=== PATIENT | female | born 1955 | race Caucasian/White ===

== ENCOUNTER 2022-09-01 10:32 | Inpatient (IN) | payer MEDICARE, MEDICAID, SELFPAY ==
[2022-09-01] VITALS (25 sets, daily range): BP systolic 131–175; BP diastolic 68–144; PULSE 70–96; RESP 12–27; TEMP 36.6–37.2; O2SAT 96–99
--- NOTE | ~2022-09-01 | US_ITS ---
Limited Abdominal Sonogram: Real-time sonographic imaging of the right upper quadrant was performed. Clinical History: Abdominal pain Findings: The liver appears normal with no evidence of mass lesion or bile duct dilatation. Main por gracy vein demonstrates normal direction of flow. The gallbladder is well distended, and appears normal with no evidence of gallstone or wall thickening. The common bile duct measures 4 mm. The visualize d pancreas, aorta, and IVC are unremarkable. Impression: No significant abnormality seen. Reviewed, dictated and finalized at location . Impression: No significant abnormality seen.
--- NOTE | ~2022-09-01 | XR_ITS ---
EXAMINATION: XR surgery orthopedic DATE: 09/02/2022 17:20 CDT INDICATION: LT HIP PINNING . TECHNIQUE: 2 fluoroscopic images of the left hip were obtained during left hip pinning performed by ally garcia surgeon. I was not present in the operating room. Fluoroscopy exposure time was 50.2 seconds. Air Kerma 8.7285 mGy. DAP 0.1730 mGym2. COMPARISON: 09/01/2022 FINDINGS: 3 cannulated screws fix a subcapital fracture into anatomic alignment. IMPRESSION: Fluoroscopic documentation of left hip pinning. Please refer to the operative note for complete proce dural details . Reviewed, dictated and finalized at location K. IMPRESSION: Fluoroscopic documentation of left hip pinning. Please refer to the operative n ote for complete procedural details .
--- NOTE | ~2022-09-01 | XR_ITS ---
EXAMINATION: XR hip LT 2V w AP pelvis INDICATION: Left hip pain, initial encounter TECHNIQUE: AP view the pelvis and two views of the left hip are obtained. COMPARISON: None available FINDINGS: There is an acute, traumatic, closed, subcapital fracture of the left femoral neck. No devi tional fracture is identified. The femoral head is well-seated in the acetabulum. Phleboliths are not ed in the pelvis. IMPRESSION: 1. Acute subcapital fracture of the left femoral neck. Reviewed, dictated and finalized at location L.
--- NOTE | ~2022-09-01 | XR_ITS ---
EXAMINATION: XR chest 1V INDICATION: Pain after fall TECHNIQUE: AP view of the chest is obtained. COMPARISON: None available FINDINGS: There is a 5 mm nodular opacity projecting in the left midlung zone. No pleural effusion or pneumothorax. Calcified pulmonary nodules and calcified left hilar lymph nodes are consistent with o ld granulomatous disease. IMPRESSION: 1. Small nodular opacity projecting in the left midlung zone. Follow-up with nonemergent CT of the ch est is recommended. Reviewed, dictated and finalized at location L. IMPRESSION: 1. Small nodular opacity projecting in the left midlung zone. Follow-up with no nemergent CT of the chest is recommended.
--- NOTE | 2022-09-01 10:44 | ECG_ITS ---
Measurements Intervals [place] Rate: 85 P: 54 [place]: 180 QRS: 50 QRSD: 92 T: 47 QT: 330 QTc: 393 Interpretive Statements SINUS RHYTHM BASELINE ARTIFACT- I, III, AVL, AVF, V1 NORMAL ECG NO PREVIOUS ECG AVAILABLE FOR COMPARISON Electronically Signed On 09-01-2022 11:47:03 CDT by Nik Fields D.O.
[2022-09-01] MEDS: ONDANSETRON INJ 4 MG/2 ML VIAL IV PUSH (10:54)
[2022-09-01] MEDS: HYDROmorphone HCL INJ (*CRX) 1 MG/ML SYR IV PUSH ×2 (10:54→13:49)
[2022-09-01 11:09] LABS: Hematocrit 45.1 % (37.0-47.0); Hemoglobin 14.7 g/dL (12.0-15.0); Mean Corpuscular HGB Conc 32.6 g/dl (32-36); Mean Corpuscular Hemoglobin 29.6 pg (26-34); Mean Corpuscular Volume 90.7 fl (80-100); Platelet Count Result 323 k/mm3 (150-375); Red Blood Count 4.97 M/mm3 (4.2-5.4); Red Cell Distribution Width 12.4 % (11.5-14.5); White Blood Count 13.9 K/mm3 (4.5-10.0)
[2022-09-01 11:10] LABS: Basophils Absolute Auto 0.1 K/mm3 (0.0-0.1); Basophils Percent Auto 0.4 % (0.2-1.2); Eosinophils Percent Auto 0.2 % (0-4.4); Immature Granulocyte Absolute 0.04 K/mm3 (0.00-0.031); Immature Granulocyte Percent A 0.3 % (0-0.5); Lymphocytes Absolute Auto 1.87 K/mm3 (0.9-3.2); Lymphocytes Percent Auto 13.4 % (18.3-44.2); Mean Platelet Volume 8.2 fl (7.4-10.4); Monocytes Absolute Auto 0.7 K/mm3 (0.1-0.6); Monocytes Percent Auto 5.3 % (2.6-8.5); Neutrophils Absolute Auto 11.2 K/mm3 (1.3-6.7); Neutrophils Percent Auto 80.4 % (45.5-73.1)
[2022-09-01 11:20] LABS: Alanine Aminotransferase 23 U/L (6-35); Albumin Level 4.5 g/dL (3.5-5.1); Alkaline Phosphatase 94 U/L (38-126); Anion Gap 8 mmol/L (8-16); Aspartate Amino Transferase 25 U/L (14-36); Bilirubin,Total 0.7 mg/dL (0.2-1.3); Blood Urea Nitrogen 17 mg/dL (7-17); Calcium 9.3 mg/dL (8.4-10.2); Carbon Dioxide 23 mmol/L (22-30); Chloride 109 mmol/L (98-107); Creatine Kinase 57 U/L (30-135); Estimated Glomerular Filt Rate > 60; Glucose 98 mg/dL (65-110); Magnesium 1.9 mg/dL (1.6-2.3); Potassium 4.4 mmol/L (3.4-5.0); Sodium 140 mmol/L (137-145)
[2022-09-01 11:28] LABS: Partial Thromboplastin Time 27.2 SECONDS (22.3-36.8)
--- NOTE | 2022-09-01 11:46 | ED.FALL ---
HPI - Fall General Chief Complaint: Fall Stated Complaint: fall hip injury Time Seen by Provider: 09/01/22 10:32 Source: patient, EMS and RN notes reviewed Mode of arrival: EMS Limitations: no limitations History of Present Illness HPI Narrative: This is a 66 year old female who presents from home for evaluation of left hip pain s/p fall. She states she accidentally slipped on the floor this morning at 3 am. A family member was able to help her up to chair. She denies hitting her head on LOC. She denies numbness or tingling. she takes aspirin 81 mg . She states her doctor has been evaluating her for liver inflammation. Related Data Home Medications Medication Instructions Recorded Confirmed aspirin 81 mg tablet,delayed 81 mg PO DAILY 09/01/22 09/01/22 release ezetimibe 10 mg tablet 10 mg PO HS 09/01/22 09/01/22 tiotropium bromide 18 mcg capsule 18 mcg inhalation DAILY 09/01/22 09/01/22 with inhalation device (Spiriva with HandiHaler) Allergies Allergy/AdvReac Type Severity Reaction Status Date / Time No Known Allergies Allergy Verified 09/01/22 11:38 Review of Systems Constitutional: Constitutional: Denies weakness Cardiovascular: Cardiovascular: Denies syncope, Denies rapid heart rate, Denies irregular heart rhythm, Denies leg edema and Denies dyspnea Respiratory: Respiratory: Denies chest congestion, Denies hemoptysis, Denies excessive phlegm production and Denies dyspnea Gastrointestinal: Gastrointestinal: Denies abdominal pain, Denies hematochezia, Denies diarrhea and Denies vomiting Genitourinary: Genitourinary: Denies hematuria and Denies dysuria Musculoskeletal: Musculoskeletal: Denies joint swelling, Denies loss of height and Denies muscle weakness Neurologic: Denies syncope, Denies focal weakness and Denies weakness PMF Past Medical History Medical History (Updated 09/01/22 @ 16:49 by Janey Rodriguez PA-C) Bowel incontinence Chronic obstructive pulmonary disease Dyslipidemia Hepatitis C Treated several years ago in the [place]. History of MRSA infection Thyroid nodule Tobacco dependence Surgical History Surgical History History of loop electrical excision procedure (LEEP) Family History Family History (Updated 09/01/22 @ 16:49 by Janey Rodriguez PA-C) Other Family history non-contributory Social History Social History (Updated 09/01/22 @ 16:50 by Janey Rodriguez PA-C) Social History: Surrogate medical decision maker: Pia Coon, sister. Code status: Full code. Smoking packs per day: 1 Smoking cigarettes per day: 20.0 Smoking status: Current every day smoker Additional smoking assessment comments: Trying to quit as of August 2022, down to 2 to 3 cigarettes a day. Lack of Transportation: No Lack of Food: Never True Current Housing: I Have Housing Concerned About Future Housing: No Difficulty Paying Gas/Electric Bills: No Difficulty Paying for Meds: No Currently Unemployed: No Education: High School Diploma/GED Difficulty w/ Childcare or Family Care: No Additional living arrangements comments: Lives in [place]. Family members nearby. Spiritual care concerns: No Exam Const: General: alert Nutritional Appearance: well nourished Orientation/consciousness: patient oriented x3 Other: patient appears anxious and in pain HENMT: Head: normal to inspection, no contusions and no hematomas Face and sinus: normal facial exam Throat: posterior oropharynx normal Eyes: EOM: EOMs intact bilaterally Neck: Neck: normal visual inspection Chest: Chest palpation & inspection: normal inspection of the chest Resp: Effort & Inspection: normal respiratory effort Auscultation: clear to auscultation bilaterally GI: GI Palp: Yes Soft to palpation, No Tenderness to palpation present (GI), No Guarding due to palpation present (GI) and No Rigid due to palpation Auscul
[2022-09-01 11:56] LABS: Ammonia 11 umol/L (9-30)
[2022-09-01 12:04] LABS: Appearance Urine Clear (Clear); Bacteria Urine None Seen /hpf; Bilirubin Urine Negative (Negative); Blood Urine 2+ (Negative); Color Urine Yellow (Yellow); Glucose Urine UA Negative (Negative); Ketones Urine Negative (Negative); Leukocyte Esterase Ur Negative LEU/UL (Negative); Nitrate Urine Negative (Negative); Non Pathogenic Casts 0-2; Protein Urine Negative (Negative); Specific Grav Ur 1.014 (1.001-1.035); Squamous Epithelial Cell Urine None seen /hpf (Few); Urobilinogen Urine 0.2 mg/dL (<2.0); WBC Urine 0-5 /hpf
[2022-09-01 12:06] LABS: Add Urine Microscopic? YES
--- NOTE | 2022-09-01 13:30 | PM.IMHP ---
H&P: HPI History of Present Illness Date/Time: 09/01/22 13:30 Chief Complaint: Left leg pain after fall. Narrative: This is a very pleasant 66-year-old female smoker with COPD, dyslipidemia, and treated hepatitis-C who presented to the emergency department via EMS from home for evaluation of left leg pain after a fall. Patient provides the following history. She got up at around 03:00 to use the restroom, slipped on the floor, and landed on her left side. She was able to crawl to the bathroom and is my she attempted to make it back to bed but fell again. Eventually she called family members to come over and they helped her up. X-ray showed acute subcapital fracture of the left femoral neck and she is being admitted in this setting. She denies head trauma and loss of consciousness in the fall. She sustained no other injuries aside from that as detailed above. In the ED her blood pressures have been running a bit high, in the 140 systolic, but other vital signs are stable. Labs are pretty unremarkable. At the time my evaluation she reports significant, constant aching pain about the left hip. 1 mg dilaudid was not of much benefit but she seems to have gotten relief with morphine 4 mg. Review of Systems Review of Systems: Twelve systems were reviewed. No fever, chills, or sweats. No recent cold or flu symptoms. She has been having issues with abdominal discomfort and pruritus and she saw her primary care provider for evaluation of those symptoms last week. The symptoms are similar to those she experienced prior to finding out she had hepatitis-C and prior to treatment of the same. She does not recall what treatment she took but reports that she had to go to the [facility] to get it. She denies jaundice and acolic stools. No nausea or vomiting. She has not noticed any blood or mucus in the stools. She has chronic stool incontinence and has for upwards of 8 years. She has had numerous colonoscopies and workups which were reportedly unrevealing. No history of cardiac disease. She denies exertional chest pain and shortness of breath. No syncope or near syncope. No history of venous thromboembolism. Except as documented, all other systems were reviewed and are negative. [facility] Past Medical History Medical History (Updated 09/01/22 @ 16:49 by Janey Rodriguez PA-C) Bowel incontinence Chronic obstructive pulmonary disease Dyslipidemia Hepatitis C Treated several years ago in the [place]. History of MRSA infection Thyroid nodule Tobacco dependence Surgical History Surgical History History of loop electrical excision procedure (LEEP) Family History Family History (Updated 09/01/22 @ 16:49 by Janey Rodriguez PA-C) Other Family history non-contributory Social History Social History (Updated 09/01/22 @ 16:50 by Janey Rodriguez PA-C) Social History: Surrogate medical decision maker: Pia Coon, sister. Code status: Full code. Smoking packs per day: 1 Smoking cigarettes per day: 20.0 Smoking status: Current every day smoker Additional smoking assessment comments: Trying to quit as of August 2022, down to 2 to 3 cigarettes a day. Lack of Transportation: No Lack of Food: Never True Current Housing: I Have Housing Concerned About Future Housing: No Difficulty Paying Gas/Electric Bills: No Difficulty Paying for Meds: No Currently Unemployed: No Education: High School Diploma/GED Difficulty w/ Childcare or Family Care: No Additional living arrangements comments: Lives in [place]. Family members nearby. Spiritual care concerns: No Meds Home Medications and Allergies Allergies Allergy/AdvReac Type Severity Reaction Status Date / Time No Known Allergies Allergy Verified 09/01/22 11:38 Vital Signs Vital Signs - 24 hr 09/01/22 10:41 Pulse Rate 96 Respiratory Rate 16 Blood Pressure 175/144 H Pulse Oximetry 98 Exam
--- NOTE | 2022-09-01 14:20 | PC.NURSE ---
Report called to [facility].
--- NOTE | 2022-09-01 15:18 | ADMGEN ---
This patient, Chelsea Molina, was admitted to 2 Medical Room 249-01. Patient/family oriented to hospital policies and general routines including ID bracelet, bed and alarms, visiting hours, pain management, procedures, bathroom and other care routines, personal items, smoking policy, room service/diet, and visiting hours. Information on how to activate the Rapid Response Team has been discussed. Patient/Family are encouraged to report perceived risks to care and to ask questions if they do not understand what they are told or what they should do.
[2022-09-01] MEDS: MORPHINE SULFATE (*CRX) 4 MG/ML INJ IV PUSH ×2 (15:34→22:34)
--- NOTE | 2022-09-01 16:04 | PM.CNOR ---
Assessment and Plan Assessment and plan (1) Closed subcapital fracture of neck of left femur: Code(s): S72.012A - Unspecified intracapsular fracture of left femur, initial encounter for closed fracture Status: Acute Plan 66-year-old female with an acute left subcapital femoral neck fracture after a fall around 3:00 a.m. this morning. Pain will be the ORIF with hip pinning tomorrow afternoon. Nature of the procedure along with risks and complications were discussed with her in detail. She will need to be NPO after midnight. She will also be touchdown weight-bearing for a minimum of 8 weeks postoperatively. Past medical history includes COPD and dyslipidemia. She is a smoker but states she is trying to quit, I did inform her this may delay her fracture healing time. She does take a daily aspirin and this will be used as our DVT prophylaxis at discharge. Likely start on Lovenox after surgery. History of Present Illness HPI Consult date: 09/01/22 Chief complaint: Closed Left Subcapital Femoral Neck Fracture Narrative: 66-year-old female with a left subcapital femoral neck fracture. She slipped and fell around 3:00 a.m. this morning and landed directly on her left side. She has significant amount of pain at the left hip. No ecchymosis or redness. She denies hitting her head or any loss of consciousness. X-rays taken in the ER show the left subcapital femoral neck fracture. Review of Systems Constitutional: Constitutional: Reports as per HPI and Reports no additional constitutional complaints Musculoskeletal: Musculoskeletal: Reports arthralgias (Left hip) [facility] Past Medical History Medical History Cervical dysplasia Chronic obstructive pulmonary disease Dyslipidemia Liver disease Tobacco dependence Social History Social History Social History: Surrogate medical decision maker: Pia Coon, sister. Code status: Full code. Smoking packs per day: 1 Smoking cigarettes per day: 20.0 Smoking status: Current every day smoker Lack of Transportation: No Lack of Food: Never True Current Housing: I Have Housing Concerned About Future Housing: No Difficulty Paying Gas/Electric Bills: No Difficulty Paying for Meds: No Currently Unemployed: No Education: High School Diploma/GED Difficulty w/ Childcare or Family Care: No Spiritual care concerns: No Meds Home Medications and Allergies Allergies Allergy/AdvReac Type Severity Reaction Status Date / Time No Known Allergies Allergy Verified 09/01/22 11:38 Vital Signs Vital Signs - 24 hr 09/01/22 10:41 09/01/22 13:48 09/01/22 13:50 Temperature 98.8 F Pulse Rate 96 79 Respiratory Rate 16 24 H Blood Pressure 175/144 H 157/95 H Pulse Oximetry 98 99 09/01/22 11:49 09/01/22 12:00 09/01/22 12:33 Temperature Pulse Rate 89 78 83 Respiratory Rate 15 13 21 H Blood Pressure Pulse Oximetry 99 97 99 09/01/22 12:45 09/01/22 13:00 09/01/22 13:01 Temperature Pulse Rate 80 82 80 Respiratory Rate 12 16 26 H Blood Pressure Pulse Oximetry 97 99 96 09/01/22 13:15 09/01/22 13:30 09/01/22 13:31 Temperature Pulse Rate 83 82 84 Respiratory Rate 27 H 15 21 H Blood Pressure 151/96 H Pulse Oximetry 99 98 96 09/01/22 13:45 09/01/22 13:46 09/01/22 13:48 Temperature Pulse Rate 85 84 80 Respiratory Rate 20 19 22 H Blood Pressure Pulse Oximetry 98 97 99 09/01/22 13:51 09/01/22 14:09 09/01/22 14:15 Temperature Pulse Rate 86 76 81 Respiratory Rate 22 H 20 17 Blood Pressure 157/95 H Pulse Oximetry 99 98 97 09/01/22 14:16 09/01/22 14:30 09/01/22 14:32 Temperature Pulse Rate 77 83 82 Respiratory Rate 15 19 22 H Blood Pressure 162/89 H 140/94 H Pulse Oximetry 96 98 98 09/01/22 15:10 Temperature 99 F Pulse Rate 86 Respiratory Rate 20 Blood Pressure 145/68 H Pulse O
[2022-09-01] MEDS: HYDROcodone/acetaminophen (*CRX) 5-325 MG TABLET 1 TAB PO (18:16)
[2022-09-02] VITALS (15 sets, daily range): BP systolic 110–178; BP diastolic 68–95; PULSE 74–109; RESP 11–20; TEMP 36.6–37.2; O2SAT 92–100
[2022-09-02] MEDS: HYDROcodone/acetaminophen (*CRX) 5-325 MG TABLET 1 TAB PO ×2 (04:33→11:18)
[2022-09-02 05:52] LABS: Basophils Percent Auto 0.4 % (0.2-1.2); Eosinophils Absolute Auto 0.1 K/mm3 (0-0.3); Hematocrit 40.8 % (37.0-47.0); Hemoglobin 13.5 g/dL (12.0-15.0); Immature Granulocyte Absolute 0.02 K/mm3 (0.00-0.031); Immature Granulocyte Percent A 0.2 % (0-0.5); Lymphocytes Absolute Auto 2.15 K/mm3 (0.9-3.2); Lymphocytes Percent Auto 25.6 % (18.3-44.2); Mean Corpuscular HGB Conc 33.1 g/dl (32-36); Mean Corpuscular Hemoglobin 29.3 pg (26-34); Mean Corpuscular Volume 88.5 fl (80-100); Mean Platelet Volume 8.3 fl (7.4-10.4); Monocytes Absolute Auto 0.7 K/mm3 (0.1-0.6); Monocytes Percent Auto 7.9 % (2.6-8.5); Neutrophils Absolute Auto 5.5 K/mm3 (1.3-6.7); Neutrophils Percent Auto 64.9 % (45.5-73.1); Platelet Count Result 306 k/mm3 (150-375); Red Blood Count 4.61 M/mm3 (4.2-5.4); Red Cell Distribution Width 12.4 % (11.5-14.5); White Blood Count 8.4 K/mm3 (4.5-10.0)
[2022-09-02 06:10] LABS: Alanine Aminotransferase 19 U/L (6-35); Albumin Level 4.2 g/dL (3.5-5.1); Alkaline Phosphatase 78 U/L (38-126); Anion Gap 5 mmol/L (8-16); Aspartate Amino Transferase 24 U/L (14-36); Bilirubin,Total 0.9 mg/dL (0.2-1.3); Blood Urea Nitrogen 14 mg/dL (7-17); Calcium 8.9 mg/dL (8.4-10.2); Carbon Dioxide 27 mmol/L (22-30); Chloride 106 mmol/L (98-107); Estimated Glomerular Filt Rate > 60; Glucose 107 mg/dL (65-110); Magnesium 1.9 mg/dL (1.6-2.3); Potassium 3.9 mmol/L (3.4-5.0); Sodium 138 mmol/L (137-145)
[2022-09-02] MEDS: MORPHINE SULFATE (*CRX) 4 MG/ML INJ IV PUSH ×2 (06:15→12:38)
--- NOTE | 2022-09-02 10:30 | PM.IMPN ---
Progress Note: A&P Assessment and Plan (1) Closed subcapital fracture of neck of left femur: Code(s): S72.012A - Unspecified intracapsular fracture of left femur, initial encounter for closed fracture Status: Acute Assessment and Plan: Presented with left hip pain after slipping on the floor while getting out of bed Hip and pelvis xray: acute subcapital fracture of the left femoral neck NPO for surgical intervention today Ortho to manage post op care DVT per ortho PT/OT as indicated Weight bearing appears to be toe touch 8 weeks post op (2) Fall from ground level: Code(s): W18.30XA - Fall on same level, unspecified, initial encounter Status: Acute Assessment and Plan: Fall precautions Mechanical in nature PT/OT post op (3) Elevated blood pressure reading: Code(s): R03.0 - Elevated blood-pressure reading, without diagnosis of hypertension Status: Acute Assessment and Plan: BP stable at 110/68 No home medications Could be elevated prior to admission related to pain Continue to trend BP Adjust therapy as indicated (4) Chronic obstructive pulmonary disease: Code(s): J44.9 - Chronic obstructive pulmonary disease, unspecified Status: Acute Assessment and Plan: Stable Continues to smoke Continue home Spiriva Chest xray shows: Small nodular opacity projecting in the left midlung zone. Follow-up with nonemergent CT of the chest is recommended. Continue to trend respiratory status (5) Dyslipidemia: Code(s): E78.5 - Hyperlipidemia, unspecified Status: Acute Assessment and Plan: Stable and chronic Continue ezetimibe when appropriate trend liver enzymes (6) Tobacco dependence: Code(s): F17.200 - Nicotine dependence, unspecified, uncomplicated Status: Acute Assessment and Plan: Nicotine patch ordered PRN Nicotine gum PRN Smoking cessation Plan Pain noted in the RUQ, ultrasound was negative, liver was also normal Time Spent With Patient Time: 52 minutes Time with patient: Greater than 35 minutes Subjective Date/time seen: 09/02/22 1030 Interval history: 09/02/22 1030 Patient was lying in bed she stated that she was having 10/10 pain. She also stated that she did feel like she was getting converted all. Change her pain medicine at this time. Patient also stated that she has been having some pretty significant right upper quadrant pain for quite some time. She was concerned that she just had a CT done at the other hospital and also stated that she was told that her hepatitis-C that was treated might be flaring back up. She denies any chest pain, shortness a breath, nausea, vomiting, diarrhea or constipation. She did state that the pain in her right upper quadrant does radiate to her shoulder blades and usually is very hard to control. She also stated that her stool is white, And watery. 09/01/22? 13:30 This is a very pleasant 66-year-old female smoker with COPD, dyslipidemia, and treated hepatitis-C who presented to the emergency department via EMS from home for evaluation of left leg pain after a fall. Patient provides the following history. She got up at around 03:00 to use the restroom, slipped on the floor, and landed on her left side. She was able to crawl to the bathroom and is my she attempted to make it back to bed but fell again. Eventually she called family members to come over and they helped her up. X-ray showed acute subcapital fracture of the left femoral neck and she is being admitted in this setting. She denies head trauma and loss of consciousness in the fall. She sustained no other injuries aside from that as detailed above. In the ED her blood pressures have been running a bit high, in the 140 systolic, but other vital signs are stable. Labs are pretty unrem
--- NOTE | 2022-09-02 10:30 | P.PNIM_ITS ---
Progress Note: A&P Assessment and Plan (1) Closed subcapital fracture of neck of left femur: Code(s): S72.012A - Unspecified intracapsular fracture of left femur, initial encounter for closed fracture Status: Acute Assessment and Plan: * Presented with left hip pain after slipping on the floor while getting out of bed * Hip and pelvis xray: acute subcapital fracture of the left femoral neck * NPO for surgical intervention today * Ortho to manage post op care * DVT per ortho * PT/OT as indicated * Weight bearing appears to be toe touch 8 weeks post op (2) Fall from ground level: Code(s): W18.30XA - Fall on same level, unspecified, initial encounter Status: Acute Assessment and Plan: * Fall precautions * Mechanical in nature * PT/OT post op (3) Elevated blood pressure reading: Code(s): R03.0 - Elevated blood-pressure reading, without diagnosis of hypertension Status: Acute Assessment and Plan: * BP stable at 110/68 * No home medications * Could be elevated prior to admission related to pain * Continue to trend BP * Adjust therapy as indicated (4) Chronic obstructive pulmonary disease: Code(s): J44.9 - Chronic obstructive pulmonary disease, unspecified Status: Acute Assessment and Plan: * Stable * Continues to smoke * Continue home Spiriva * Chest xray shows: Small nodular opacity projecting in the left midlung zone. Follow-up with nonemergent CT of the chest is recommended. * Continue to trend respiratory status (5) Dyslipidemia: Code(s): E78.5 - Hyperlipidemia, unspecified Status: Acute Assessment and Plan: * Stable and chronic * Continue ezetimibe when appropriate * trend liver enzymes (6) Tobacco dependence: Code(s): F17.200 - Nicotine dependence, unspecified, uncomplicated Status: Acute Assessment and Plan: * Nicotine patch ordered PRN * Nicotine gum PRN * Smoking cessation Plan Pain noted in the RUQ, ultrasound was negative, liver was also normal Time Spent With Patient Time: 52 minutes Time with patient: Greater than 35 minutes Subjective Date/time seen: 09/02/22 1030 Interval history: 09/02/22 1030 Patient was lying in bed she stated that she was having 10/10 pain. She also stated that she did feel like she was getting converted all. Change her pain medicine at this time. Patient also stated that she has been having some pretty significant right upper quadrant pain for quite some time. She was concerned that she just had a CT done at the other hospital and also stated that she was told that her hepatitis-C that was treated might be flaring back up. She denies any chest pain, shortness a breath, nausea, vomiting, diarrhea or constipation. She did state that the pain in her right upper quadrant does radiate to her shoulder blades and usually is very hard to control. She also stated that her stool is white, And watery. 09/01/22? 13:30 This is a very pleasant 66-year-old female smoker with COPD, dyslipidemia, and treated hepatitis-C who presented to the emergency department via EMS from home for evaluation of left leg pain after a fall. Patient provides the following history. She got up at around 03:00 to use the restroom,
[2022-09-02] MEDS: HYDROmorphone HCL INJ (*CRX) 1 MG/ML SYR IV PUSH (14:58)
[2022-09-02] MEDS: HYDROmorphone HCL INJ (*CRX) 1 MG/ML SYR 0.5 MG IV PUSH ×2 (15:54→20:59)
--- NOTE | 2022-09-02 16:34 | WPDANESEPPF ---
Anes - Initial Pre Proc Eval Procedure: Operation Date: 09/02/22 17:00 Proposed Procedures p Left Hip Pinning In Situ(Left) - Neil Bates MD Date/Time: 09/02/22 16:34 Surgeon: Aguilar Bruce MD Pre Op Diagnosis: Closed Left Subcapital Femoral Neck Fracture Patient Data Age: 66 Gender: F Height: Weight: 73 kg Last Vital Signs Temp 36.9 C 09/02/22 14:00 Pulse 82 09/02/22 14:00 Resp 19 09/02/22 14:00 BP 144/95 H 09/02/22 14:00 Pulse Ox 99 09/02/22 14:00 O2 Del Method Room Air 09/02/22 08:00 Allergies Allergy/AdvReac Type Severity Reaction Status Date / Time No Known Allergies Allergy Verified 09/01/22 11:38 Home Medications Medication Instructions Recorded Confirmed Type aspirin 81 mg tablet,delayed 81 mg PO DAILY 09/01/22 09/01/22 History release ezetimibe 10 mg tablet 10 mg PO HS 09/01/22 09/01/22 History tiotropium bromide 18 mcg capsule 18 mcg inhalation DAILY 09/01/22 09/01/22 History with inhalation device (Spiriva with HandiHaler) Laboratory Tests 09/02/22 09/02/22 05:28 05:28 WBC 8.4 K/mm3 K/mm3 (4.5-10.0) RBC 4.61 M/mm3 M/mm3 (4.2-5.4) Hgb 13.5 g/dL g/dL (12.0-15.0) Hct 40.8 % % (37.0-47.0) MCV 88.5 fl fl (80-100) MCH 29.3 pg pg (26-34) MCHC 33.1 g/dl g/dl (32-36) RDW 12.4 % % (11.5-14.5) Plt Count 306 k/mm3 k/mm3 (150-375) MPV 8.3 fl fl (7.4-10.4) Immature Gran % (Auto) 0.2 % % (0-0.5) Neut % (Auto) 64.9 % % (45.5-73.1) Lymph % (Auto) 25.6 % % (18.3-44.2) [place] % (Auto) 7.9 % % (2.6-8.5) Eos % (Auto) 1.0 % % (0-4.4) Baso % (Auto) 0.4 % % (0.2-1.2) Lymph # (Auto) 2.15 K/mm3 K/mm3 (0.9-3.2) [place] # (Auto) 0.7 K/mm3 H K/mm3 (0.1-0.6) Eos # (Auto) 0.1 K/mm3 K/mm3 (0-0.3) Baso # (Auto) 0.0 K/mm3 K/mm3 (0.0-0.1) Abs Immat Gran (auto) 0.02 K/mm3 K/mm3 (0.00-0.031) Absolute Neuts (auto) 5.5 K/mm3 K/mm3 (1.3-6.7) Absolute Nucleated RBC 0.0 K/mm3 K/mm3 (0.0-0.012) Nucleated RBC % 0.0 % % (0.0-0.2) Sodium 138 mmol/L mmol/L (137-145) Potassium 3.9 mmol/L mmol/L (3.4-5.0) Chloride 106 mmol/L mmol/L (98-107) Carbon Dioxide 27 mmol/L mmol/L (22-30) Anion Gap 5 mmol/L L mmol/L (8-16) BUN 14 mg/dL mg/dL (7-17) Creatinine 0.70 mg/dL mg/dL (0.7-1.0) Estim Creat Clear Calc Not Reportable Estimated GFR > 60 (59 - ) Glucose 107 mg/dL mg/dL (65-110) Calcium 8.9 mg/dL mg/dL (8.4-10.2) Magnesium 1.9 mg/dL mg/dL (1.6-2.3) Total Bilirubin 0.9 mg/dL mg/dL (0.2-1.3) AST 24 U/L U/L (14-36) ALT 19 U/L U/L (6-35) Alkaline Phosphatase 78 U/L U/L (38-126) Total Protein 8.0 g/dL g/dL (6.3-8.2) Albumin 4.2 g/dL g/dL (3.5-5.1) Patient hx anesthesia problems: none Family hx anesthesia problems: none Results Review: All pre-operative results and documents have been reviewed as part of the pre-operative evaluation. [facility] Past Medical History Medical History Bowel incontinence Chronic obstructive pulmonary disease Dyslipidemia Hepatitis C Treated several years ago in the . History of MRSA infection Thyroid nodule Tobacco dependence Surgical History Surgical History History of loop electrical excision procedure (LEEP) Family History Family History Other Family history non-contributory Social History Social History Social History: Surrogate medical decision maker: Pia Ocon, sister. Code status: Full code. Smoking packs per day: 1 Smoking cigarettes per day: 20.0
[2022-09-02] MEDS: LACTATED RINGERS 1,000 ML 30 ML IV CONT (16:35)
--- NOTE | 2022-09-02 16:41 | WPDHPUPDATE1 ---
History and Physical Update Update Date/Time: 09/02/22 16:41 History and Physical has been reviewed, including an updated exam of the patient. There are NO changes in the patient's condition. Risks, benefits, and alternatives have been discussed and questions answered. Patient agrees to proceed with procedure.
[2022-09-02] MEDS: ceFAZolin 2 GM/D5W 50 ML 2 GM/50 ML BAG IVPB (16:59)
--- NOTE | 2022-09-02 18:19 | P.OP_ITS ---
Procedure Note - Detailed Date of Procedure 09/02/22 Pre-op Diagnosis Closed Left Subcapital Femoral Neck Fracture Post-op Diagnosis Same Procedure Performed Pinning in-situ left femoral neck fracture Surgeon Neil Bates MD Senior Analyst [employer] Anesthesia General Description of Procedure The patient was identified and proper site identified. She was taken to the operating room and after general anesthetic induction and intubation was transferred to the [place] table positioning her supine in the usual manner for fixation of a left hip fracture. Care was taken to properly position and had her torso and extremities. Left hip fracture was examined fluoroscopically and noted to be in unchanged impacted position. The left hip and thigh was prepped and draped in usual sterile fashion. Longitudinal incision was made over the lateral aspect of the proximal femur. The subcutaneous tissue was sharply dissected down to the IT band which was divided in line of the incision. Using the targeting device , and with fluoroscopic assistance, three pins for the seven-0 cannulated screw set were placed in the femoral neck and head over which three cannulated screws were placed and the pins removed. The wound was irrigated with sterile saline. The IT band was reapproximated with 0 Vicryl suture. Deeper layers of the subcu reapproximated with 0 Vicryl. Skin reapproximated with 3-0 V lock and allegra. Sterile dressing was applied. She tolerated procedure well. She was awakened, extubated and taken to recovery area in stable condition. There were no known intraoperative complications. Estimated blood loss negligible. She received perioperative antibiotics. Estimated Blood Loss 10 Urine Output 0 Drains No Packing No Pathology None sent Complications No immediate complications Condition Stable Disposition PACU [facility] Billing Surgery - Charge Forward: Surgery Billing ([id number])
[2022-09-02] MEDS: ONDANSETRON INJ 4 MG/2 ML VIAL IV PUSH (18:57)
[2022-09-02] MEDS: diphenhydrAMINE HCl INJ 50 MG/ML VIAL 25 MG IV PUSH (19:27)
[2022-09-02] MEDS: fentaNYL CITRATE INJ (*CRX) 100 MCG/2 ML VIAL 25 MCG IV PUSH (19:35)
--- NOTE | 2022-09-02 20:06 | PC.NURSE ---
Pt returned from OR, Pt alert and oriented and placed into bed.
[2022-09-02] MEDS: SODIUM CHLORIDE 0.9% IV 1,000 ML 125 ML IV CONT (20:51)
[2022-09-02] MEDS: PROMETHAZINE HCL 25 MG/ML AMPUL 12.5 MG IV PUSH (21:01)
[2022-09-02] MEDS: EZETIMIBE 10 MG TABLET PO (22:01)
[2022-09-02] MEDS: FAMOTIDINE 20 MG TABLET PO (22:01)
[2022-09-02] MEDS: HYDROcodone/acetaminophen (*CRX) 5-325 MG TABLET 2 TAB PO (22:02)
[2022-09-03] VITALS (7 sets, daily range): BP systolic 123–157; BP diastolic 84–90; PULSE 74–84; RESP 16–18; TEMP 36.4–36.9; O2SAT 94–99
[2022-09-03] MEDS: ceFAZolin 2 GM/D5W 50 ML 2 GM/50 ML BAG IVPB ×3 (01:38→16:37)
[2022-09-03] MEDS: HYDROcodone/acetaminophen (*CRX) 5-325 MG TABLET 2 TAB PO ×2 (03:53→21:29)
[2022-09-03 05:54] LABS: Basophils Percent Auto 0.4 % (0.2-1.2); Eosinophils Absolute Auto 0.1 K/mm3 (0-0.3); Eosinophils Percent Auto 1.1 % (0-4.4); Hematocrit 43.1 % (37.0-47.0); Hemoglobin 13.7 g/dL (12.0-15.0); Immature Granulocyte Absolute 0.02 K/mm3 (0.00-0.031); Immature Granulocyte Percent A 0.2 % (0-0.5); Lymphocytes Absolute Auto 2.31 K/mm3 (0.9-3.2); Lymphocytes Percent Auto 20.9 % (18.3-44.2); Mean Corpuscular HGB Conc 31.8 g/dl (32-36); Mean Corpuscular Hemoglobin 29.7 pg (26-34); Mean Corpuscular Volume 93.3 fl (80-100); Mean Platelet Volume 8.5 fl (7.4-10.4); Neutrophils Absolute Auto 7.6 K/mm3 (1.3-6.7); Neutrophils Percent Auto 68.4 % (45.5-73.1); Platelet Count Result 282 k/mm3 (150-375); Red Blood Count 4.62 M/mm3 (4.2-5.4); Red Cell Distribution Width 12.5 % (11.5-14.5); White Blood Count 11.1 K/mm3 (4.5-10.0)
[2022-09-03 06:16] LABS: Alanine Aminotransferase 17 U/L (6-35); Albumin Level 3.7 g/dL (3.5-5.1); Alkaline Phosphatase 65 U/L (38-126); Anion Gap 6 mmol/L (8-16); Aspartate Amino Transferase 28 U/L (14-36); Bilirubin,Total 0.7 mg/dL (0.2-1.3); Blood Urea Nitrogen 14 mg/dL (7-17); Calcium 8.3 mg/dL (8.4-10.2); Carbon Dioxide 24 mmol/L (22-30); Chloride 109 mmol/L (98-107); Estimated CRCL calculation 63 ml/min; Estimated Glomerular Filt Rate > 60; Glucose 98 mg/dL (65-110); Magnesium 1.8 mg/dL (1.6-2.3); Potassium 4.3 mmol/L (3.4-5.0); Sodium 139 mmol/L (137-145)
[2022-09-03] MEDS: SODIUM CHLORIDE 0.9% IV 1,000 ML 125 ML IV CONT (06:17)
[2022-09-03] MEDS: FAMOTIDINE 20 MG TABLET PO ×2 (08:09→20:20)
[2022-09-03] MEDS: polyethylene glycoL 3350 17 GM POWD.PACK PO (08:09)
[2022-09-03] MEDS: SENNA/DOCUSATE SODIUM TABLET 2 TAB PO ×2 (08:10→16:37)
[2022-09-03] MEDS: APIXABAN 2.5 MG TABLET PO ×2 (08:10→20:20)
[2022-09-03] MEDS: UMECLIDINIUM BROMIDE 62.5 MCG ELLIPTA 1 PUFF INHALATION (08:31)
--- NOTE | 2022-09-03 09:30 | P.PNIM_ITS ---
Progress Note: A&P Assessment and Plan (1) Closed subcapital fracture of neck of left femur: Code(s): S72.012A - Unspecified intracapsular fracture of left femur, initial encounter for closed fracture Status: Acute Assessment and Plan: * POD 1 * Presented with left hip pain after slipping on the floor while getting out of bed * Hip and pelvis xray: acute subcapital fracture of the left femoral neck * NPO for surgical intervention today * Ortho to manage post op care * DVT Aspirin * PT/OT as indicated * Weight bearing appears to be toe touch 8 weeks post op (2) Fall from ground level: Code(s): W18.30XA - Fall on same level, unspecified, initial encounter Status: Acute Assessment and Plan: * Fall precautions * Mechanical in nature * PT/OT post op (3) Elevated blood pressure reading: Code(s): R03.0 - Elevated blood-pressure reading, without diagnosis of hypertension Status: Acute Assessment and Plan: * BP stable at 125/84 * No home medications * Could be elevated prior to admission related to pain * Continue to trend BP * Adjust therapy as indicated (4) Chronic obstructive pulmonary disease: Code(s): J44.9 - Chronic obstructive pulmonary disease, unspecified Status: Acute Assessment and Plan: * Stable * Continues to smoke * Continue home Spiriva * Chest xray shows: Small nodular opacity projecting in the left midlung zone. Follow-up with nonemergent CT of the chest is recommended. * Continue to trend respiratory status (5) Dyslipidemia: Code(s): E78.5 - Hyperlipidemia, unspecified Status: Acute Assessment and Plan: * Stable and chronic * Continue ezetimibe when appropriate * trend liver enzymes (6) Tobacco dependence: Code(s): F17.200 - Nicotine dependence, unspecified, uncomplicated Status: Acute Assessment and Plan: * Nicotine patch ordered PRN * Nicotine gum PRN * Smoking cessation Plan Pain noted in the RUQ, ultrasound was negative, liver was also normal Reviewed plan of care, imaging and labs with patient and family Time Spent With Patient Time: 52 minutes Time with patient: Greater than 35 minutes Subjective Date/time seen: 09/03/22929 Interval history: 09/03/22929 patient is sitting in the chair. Patient states she does have some pain however she just got done working with therapy. She denies any current chest pain, shortness a breath, nausea, vomiting, diarrhea or constipation. She has been eating and drinking well. She is wanting to go home. Labs and vital signs remained stable. 09/02/22 1030 Patient was lying in bed she stated that she was having 10/10 pain. She also stated that she did feel like she was getting converted all. Change her pain medicine at this time. Patient also stated that she has been having some pretty significant right upper quadrant pain for quite some time. She was concerned that she just had a CT done at the other hospital and also stated that she was told that her hepatitis-C that was treated might be flaring back up. She denies any chest pain, shortness a breath, nausea, vomiting, diarrhea or constipation. She did state that the pain in her right upper quadrant does radiate to he
--- NOTE | 2022-09-03 09:30 | PM.IMPN ---
Progress Note: A&P Assessment and Plan (1) Closed subcapital fracture of neck of left femur: Code(s): S72.012A - Unspecified intracapsular fracture of left femur, initial encounter for closed fracture Status: Acute Assessment and Plan: POD 1 Presented with left hip pain after slipping on the floor while getting out of bed Hip and pelvis xray: acute subcapital fracture of the left femoral neck NPO for surgical intervention today Ortho to manage post op care DVT Aspirin PT/OT as indicated Weight bearing appears to be toe touch 8 weeks post op (2) Fall from ground level: Code(s): W18.30XA - Fall on same level, unspecified, initial encounter Status: Acute Assessment and Plan: Fall precautions Mechanical in nature PT/OT post op (3) Elevated blood pressure reading: Code(s): R03.0 - Elevated blood-pressure reading, without diagnosis of hypertension Status: Acute Assessment and Plan: BP stable at 125/84 No home medications Could be elevated prior to admission related to pain Continue to trend BP Adjust therapy as indicated (4) Chronic obstructive pulmonary disease: Code(s): J44.9 - Chronic obstructive pulmonary disease, unspecified Status: Acute Assessment and Plan: Stable Continues to smoke Continue home Spiriva Chest xray shows: Small nodular opacity projecting in the left midlung zone. Follow-up with nonemergent CT of the chest is recommended. Continue to trend respiratory status (5) Dyslipidemia: Code(s): E78.5 - Hyperlipidemia, unspecified Status: Acute Assessment and Plan: Stable and chronic Continue ezetimibe when appropriate trend liver enzymes (6) Tobacco dependence: Code(s): F17.200 - Nicotine dependence, unspecified, uncomplicated Status: Acute Assessment and Plan: Nicotine patch ordered PRN Nicotine gum PRN Smoking cessation Plan Pain noted in the RUQ, ultrasound was negative, liver was also normal Reviewed plan of care, imaging and labs with patient and family Time Spent With Patient Time: 52 minutes Time with patient: Greater than 35 minutes Subjective Date/time seen: 09/03/22929 Interval history: 09/03/22929 patient is sitting in the chair. Patient states she does have some pain however she just got done working with therapy. She denies any current chest pain, shortness a breath, nausea, vomiting, diarrhea or constipation. She has been eating and drinking well. She is wanting to go home. Labs and vital signs remained stable. 09/02/22 1030 Patient was lying in bed she stated that she was having 10/10 pain. She also stated that she did feel like she was getting converted all. Change her pain medicine at this time. Patient also stated that she has been having some pretty significant right upper quadrant pain for quite some time. She was concerned that she just had a CT done at the other hospital and also stated that she was told that her hepatitis-C that was treated might be flaring back up. She denies any chest pain, shortness a breath, nausea, vomiting, diarrhea or constipation. She did state that the pain in her right upper quadrant does radiate to her shoulder blades and usually is very hard to control. She also stated that her stool is white, And watery. 09/01/22? 13:30 This is a very pleasant 66-year-old female smoker with COPD, dyslipidemia, and treated hepatitis-C who presented to the emergency department via EMS from home for evaluation of left leg pain after a fall. Patient provides the following history. She got up at around 03:00 to use the restroom, slipped on the floor, and landed on her left side. She was able to crawl to the bathroom and is my she attempted to make it back to bed but fell again. Eventually she called family
[2022-09-03] MEDS: HYDROcodone/acetaminophen (*CRX) 5-325 MG TABLET 1 TAB PO ×3 (09:57→16:46)
--- NOTE | 2022-09-03 11:37 | PM.PNORT ---
Progress Note: A&P Assessment and Plan (1) Closed subcapital fracture of neck of left femur: Code(s): S72.012A - Unspecified intracapsular fracture of left femur, initial encounter for closed fracture Status: Acute Assessment and Plan: Doing well postop day one left hip pending. Orders already written. We will need to see in the office in two weeks. Will follow while still in the hospital. Discussed surgery with patient and sister. Nothing new to add. Subjective Subjective Date/Time Seen: 09/03/22 11:37 Post Op day: 1 (Pinning left subcapital femoral neck fracture) Principal diagnosis: Dx: Interval history: 66-year-old female postop day one left hip pinning. Having some discomfort but tolerating therapy. Review of Systems Constitutional: Constitutional: Reports no additional constitutional complaints Respiratory: Respiratory: Reports no additional respiratory complaints Gastrointestinal: Gastrointestinal: Reports no additional gastrointestinal complaints Exam Const: General: cooperative, alert and awake Orientation/consciousness: patient oriented x3 HENMT: Head: normal to inspection Ears: hearing grossly normal bilaterally Resp: Effort & Inspection: able to speak in complete sentences GI: Inspection: non-distended Neuro: General: patient oriented x3 Extrem: Other: Exam of left hip wound shows dry dressing. And grossly neurovascular status intact left lower extremity but exam limited secondary to discomfort. Psych: Mental Status: mental status grossly normal Objective Data Vital Signs Vital Signs: Vital Signs - 24 hr 09/02/22 14:00 09/02/22 18:18 09/02/22 18:30 Temperature 98.5 F 98.9 F Pulse Rate 82 84 80 Respiratory Rate 19 20 18 Blood Pressure 144/95 H 170/82 H 153/83 H Pulse Oximetry 99 99 98 Oxygen Delivery Simple Face Mask Simple Face Mask Oxygen Flow Rate 8 8 Fraction of Inspired Oxygen 09/02/22 18:45 09/02/22 19:00 09/02/22 19:15 Temperature Pulse Rate 82 74 80 Respiratory Rate 14 13 12 Blood Pressure 150/75 H 157/84 H 168/95 H Pulse Oximetry 92 99 98 Oxygen Delivery Room Air Nasal Cannula Nasal Cannula Oxygen Flow Rate 3 4 Fraction of Inspired Oxygen 09/02/22 19:30 09/02/22 19:45 09/02/22 19:54 Temperature Pulse Rate 75 76 76 Respiratory Rate 11 L 12 12 Blood Pressure 172/89 H 134/86 134/86 Pulse Oximetry 96 98 98 Oxygen Delivery Nasal Cannula Nasal Cannula Nasal Cannula Oxygen Flow Rate 4 4 4 Fraction of Inspired Oxygen 09/02/22 20:15 09/02/22 20:00 09/02/22 22:00 Temperature 98.3 F 98.0 F Pulse Rate 82 109 H Respiratory Rate 16 16 Blood Pressure 143/92 H 178/88 H Pulse Oximetry 100 98 94 Oxygen Delivery Nasal Cannula Oxygen Flow Rate 1 Fraction of Inspired Oxygen 09/02/22 20:30 09/02/22 21:00 09/03/22 05:45 Temperature 98.5 F 97.8 F Pulse Rate 86 99 Respiratory Rate 16 18 Blood Pressure 138/70 148/80 H Pulse Oximetry 100 98 94 Oxygen Delivery Nasal Cannula Oxygen Flow Rate 1 Fraction of Inspired Oxygen 09/03/22 06:16 09/03/22 08:38 09/03/22 08:20 Temperature 97.6 F Pulse Rate 80 Respiratory Rate 16 Blood Pressure 125/84 Pulse Oximetry 99 Oxygen Delivery Room Air Room Air Oxygen Flow Rate Fraction of Inspired Oxygen 09/03/22 08:31 09/03/22 08:31 Temperature Pulse Rate 82 82 Respiratory Rate 18 18 Blood Pressure Pulse Oximetry 98 Oxygen Delivery Room Air Oxygen Flow Rate Fraction of Inspired Oxygen 21 Intake/Output Intake/Output: Intake & Output 08/31/22 09/01/22 09/02/22 09/03/22 23:59 23:59 23:59 23:59 Intake Total 440 / 440 1050 / 1050 1958 Output Total 0 / 0 0 / 0 300 / 300 Balance 440 / 440 1050 / 1050 1659 / 165 Meds/Results Medications: Active Medications Generic Name Dose Route Start Last Admin Trade Name Freq PRN Reason Stop Dose Admin Acetaminophen 650 mg 09/02/22 19:58 Acetaminophen 325 Mg Tabl
[2022-09-03] MEDS: MORPHINE SULFATE (*CRX) 4 MG/ML INJ IV PUSH (14:23)
[2022-09-03] MEDS: EZETIMIBE 10 MG TABLET PO (20:20)
[2022-09-04] MEDS: ceFAZolin 2 GM/D5W 50 ML 2 GM/50 ML BAG IVPB ×2 (01:14→10:02)
[2022-09-04] MEDS: HYDROcodone/acetaminophen (*CRX) 5-325 MG TABLET 2 TAB PO (05:50)
[2022-09-04 05:54] VITALS: BP 139/80; PULSE 82; RESP 17; TEMP 36.4; O2SAT 95
[2022-09-04] MEDS: UMECLIDINIUM BROMIDE 62.5 MCG ELLIPTA 1 PUFF INHALATION (09:01)
[2022-09-04] MEDS: APIXABAN 2.5 MG TABLET PO (09:59)
[2022-09-04] MEDS: polyethylene glycoL 3350 17 GM POWD.PACK PO (10:02)
[2022-09-04] MEDS: HYDROcodone/acetaminophen (*CRX) 5-325 MG TABLET 1 TAB PO (10:02)
[2022-09-04] MEDS: SENNA/DOCUSATE SODIUM TABLET 2 TAB PO (10:02)
[2022-09-04] MEDS: FAMOTIDINE 20 MG TABLET PO (10:02)
--- NOTE | 2022-09-04 10:54 | PM.PNORT ---
Progress Note: A&P Assessment and Plan (1) Closed subcapital fracture of neck of left femur: Code(s): S72.012A - Unspecified intracapsular fracture of left femur, initial encounter for closed fracture Status: Acute Assessment and Plan: 66-year-old female doing well postop day 2 left hip pinning. She has a follow-up appointment scheduled on September 16, 2022 at 10:00 a.m.. Will discharge home with [place] for pain. She was also will resume her daily aspirin at discharge for DVT prophylaxis. She prefers to be discharged home with home health and I feel this would be reasonable. She states she has much help around the house with her family. She will maintain her touchdown weight-bearing status of the left lower extremity for least 8 weeks. She is to keep left hip wound clean and dry until her follow-up appointment. Subjective Subjective Date/Time Seen: 09/04/22 10:54 Post Op day: 2 Principal diagnosis: s/p pinning left subcapital femoral neck fracture Interval history: 66-year-old female postop day 2 left hip pinning. She continues to have discomfort in the left hip but progressing well with therapy. She would rather be discharged home with home health rather than nursing home. Review of Systems Review of Systems: All systems reviewed & are unremarkable except as noted in HPI and below Constitutional: Constitutional: Reports as per HPI and Reports no additional constitutional complaints Musculoskeletal: Musculoskeletal: Reports no additional musculoskeletal complaints and Reports as per HPI Exam Const: General: comfortable and no acute distress Orientation/consciousness: patient oriented x3 HENMT: Head: normal to inspection Ears: hearing grossly normal bilaterally Resp: Effort & Inspection: normal respiratory effort GI: Inspection: non-distended Neuro: General: patient oriented x3 Extrem: Other: Exam of left hip wound shows a clean and dry dressing. Neurovascular status left lower extremity intact. Calves negative. Psych: Mental Status: mental status grossly normal Radiology Reports: Comments: EXAMINATION: XR surgery orthopedic DATE: 09/02/2022 17:20 CDT INDICATION: LT HIP PINNING . TECHNIQUE: 2 fluoroscopic images of the left hip were obtained during left hip pinning performed by the surgeon. I was not present in the operating room. Fluoroscopy exposure time was 50.2 seconds. Air Kerma 8.7285 mGy. DAP 0.1730 mGym2. COMPARISON: 09/01/2022 FINDINGS: 3 cannulated screws fix a subcapital fracture into anatomic alignment. IMPRESSION: Fluoroscopic documentation of left hip pinning. Please refer to the operative note for complete procedural details . Hip and Pelvis X-Ray 09/01/22 Objective Data Vital Signs Vital Signs: Vital Signs - 24 hr 09/03/22 13:23 09/03/22 18:41 09/03/22 21:28 Temperature 98.4 F 98.1 F 97.6 F Pulse Rate 81 74 84 Respiratory Rate 18 18 17 Blood Pressure 127/90 157/86 H 123/84 Pulse Oximetry 99 97 96 Oxygen Delivery 09/03/22 20:00 09/04/22 05:54 Temperature 97.6 F Pulse Rate 82 Respiratory Rate 17 Blood Pressure 139/80 Pulse Oximetry 95 Oxygen Delivery Room Air Intake/Output Intake/Output: Intake & Output 09/01/22 09/02/22 09/03/22 09/04/22 23:59 23:59 23:59 23:59 Intake Total 440 1050 3529 970 Output Total 0 0 700 Balance 440 1050 2829 970 Meds/Results Medications: Active Medications Generic Name Dose Route Start Last Admin Trade Name Freq PRN Reason Stop Dose Admin Acetaminophen 650 mg 09/02/22 19:58 Acetaminophen 325 Mg Tablet PO Q6H PRN Mild Pain (1-3) or Fever Hydrocodone Bitart/Acetaminophen 1 tab 09/02/22 19:58 09/04/22 10:02 Hydrocodone/Acetaminophen (*Crx) 5-325 Mg Tablet PO 1 tab Q3H PRN Administration Pain Rated 4-6 Hydrocodone Bitart/Acetaminophen 2 tab 09/02/22 19:58 09/04/22 05:50 Hydrocodone/Acetaminophen (*Crx) 5-325 Mg Tablet PO 2 tab Q6
--- NOTE | 2022-09-04 11:40 | PC.NURSE ---
On 09/04/22, the student, Dave, provided care and completed [facility] documentation on this patient. I have reviewed the student's documentation and agree with the findings.
--- NOTE | 2022-09-04 11:45 | P.DS_ITS ---
DS: Admitting Diagnosis Discharge Date 09/04/22 1145 Admitting Diagnosis left femoral femur fracture DS: Discharge Diagnosis Discharge Diagnosis (1) Closed subcapital fracture of neck of left femur: Code(s): S72.012A - Unspecified intracapsular fracture of left femur, initial encounter for closed fracture Status: Acute Assessment and Plan: * POD 2 * Presented with left hip pain after slipping on the floor while getting out of bed * Hip and pelvis xray: acute subcapital fracture of the left femoral neck * NPO for surgical intervention today * Ortho to manage post op care * DVT Aspirin * PT/OT as indicated * Weight bearing appears to be toe touch 8 weeks post op (2) Fall from ground level: Code(s): W18.30XA - Fall on same level, unspecified, initial encounter Status: Acute Assessment and Plan: * Fall precautions * Mechanical in nature * PT/OT post op (3) Elevated blood pressure reading: Code(s): R03.0 - Elevated blood-pressure reading, without diagnosis of hypertension Status: Acute Assessment and Plan: * BP stable at 139/80 * No home medications * Could be elevated prior to admission related to pain * Continue to trend BP * Adjust therapy as indicated (4) Chronic obstructive pulmonary disease: Code(s): J44.9 - Chronic obstructive pulmonary disease, unspecified Status: Acute Assessment and Plan: * Stable * Continues to smoke * Continue home Spiriva * Chest xray shows: Small nodular opacity projecting in the left midlung zone. Follow-up with nonemergent CT of the chest is recommended. * Continue to trend respiratory status (5) Dyslipidemia: Code(s): E78.5 - Hyperlipidemia, unspecified Status: Acute Assessment and Plan: * Stable and chronic * Continue ezetimibe when appropriate * trend liver enzymes (6) Tobacco dependence: Code(s): F17.200 - Nicotine dependence, unspecified, uncomplicated Status: Acute Assessment and Plan: * Nicotine patch ordered PRN * Nicotine gum PRN * Smoking cessation Plan Pain noted in the RUQ, ultrasound was negative, liver was also normal DS: Summary Hospital Course Hospital Course: Patient is a 66-year-old female with a past medical history of COPD, hyperlipi demia, hep C, GERD who presented to the emergency room after a fall at home. Patient stated that she was trying to get up to go the bathroom when she slipped and landed on her left side. X-ray show acute sub capital fracture of the left femoral neck. Orthopedics was consulted and patient was taken to the OR for repair. Currently patient is doing well with therapy and will remain toe-touch weight-bearing for 8 weeks. She denies any current chest pain, shortness a breath, nausea, vomiting, diarrhea or constipation at this time. Patient is still having some pain however it is controlled with pain pills. Blood pressure was noted to be a little bit elevated upon arrival however has normalized and is currently 139/80. Patient is stable for discharge for labs and vital signs. On a side note patient was complaining of some right upper quadrant pain. Ultrasound was performed and did show no acute abnormalities or any abnormalities. Patient is really worried about her liver a
--- NOTE | 2022-09-04 11:45 | PM.DS ---
DS: Admitting Diagnosis Discharge Date 09/04/22 1145 Admitting Diagnosis left femoral femur fracture DS: Discharge Diagnosis Discharge Diagnosis (1) Closed subcapital fracture of neck of left femur: Code(s): S72.012A - Unspecified intracapsular fracture of left femur, initial encounter for closed fracture Status: Acute Assessment and Plan: POD 2 Presented with left hip pain after slipping on the floor while getting out of bed Hip and pelvis xray: acute subcapital fracture of the left femoral neck NPO for surgical intervention today Ortho to manage post op care DVT Aspirin PT/OT as indicated Weight bearing appears to be toe touch 8 weeks post op (2) Fall from ground level: Code(s): W18.30XA - Fall on same level, unspecified, initial encounter Status: Acute Assessment and Plan: Fall precautions Mechanical in nature PT/OT post op (3) Elevated blood pressure reading: Code(s): R03.0 - Elevated blood-pressure reading, without diagnosis of hypertension Status: Acute Assessment and Plan: BP stable at 139/80 No home medications Could be elevated prior to admission related to pain Continue to trend BP Adjust therapy as indicated (4) Chronic obstructive pulmonary disease: Code(s): J44.9 - Chronic obstructive pulmonary disease, unspecified Status: Acute Assessment and Plan: Stable Continues to smoke Continue home Spiriva Chest xray shows: Small nodular opacity projecting in the left midlung zone. Follow-up with nonemergent CT of the chest is recommended. Continue to trend respiratory status (5) Dyslipidemia: Code(s): E78.5 - Hyperlipidemia, unspecified Status: Acute Assessment and Plan: Stable and chronic Continue ezetimibe when appropriate trend liver enzymes (6) Tobacco dependence: Code(s): F17.200 - Nicotine dependence, unspecified, uncomplicated Status: Acute Assessment and Plan: Nicotine patch ordered PRN Nicotine gum PRN Smoking cessation Plan Pain noted in the RUQ, ultrasound was negative, liver was also normal DS: Summary Hospital Course Hospital Course: Patient is a 66-year-old female with a past medical history of COPD, hyperlipidemia, hep C, GERD who presented to the emergency room after a fall at home. Patient stated that she was trying to get up to go the bathroom when she slipped and landed on her left side. X-ray show acute sub capital fracture of the left femoral neck. Orthopedics was consulted and patient was taken to the OR for repair. Currently patient is doing well with therapy and will remain toe-touch weight-bearing for 8 weeks. She denies any current chest pain, shortness a breath, nausea, vomiting, diarrhea or constipation at this time. Patient is still having some pain however it is controlled with pain pills. Blood pressure was noted to be a little bit elevated upon arrival however has normalized and is currently 139/80. Patient is stable for discharge for labs and vital signs. On a side note patient was complaining of some right upper quadrant pain. Ultrasound was performed and did show no acute abnormalities or any abnormalities. Patient is really worried about her liver as she did have hep C and feels that this is a recurrence. She was treated however according to her provider she has a highly likelihood of recurrence. Ultrasound did show that the liver was normal and no issues with the gallbladder pancreas or spleen. CT scan was also reviewed from [facility] with no current abnormalities as well. Patient is stable for discharge for labs and vital signs. Patient will be going home with the support of her sisters and other family members. Status at Discharge Functional status at discharge: uses cane/walker Overall status at discharge: patient is
--- NOTE | 2022-09-04 13:03 | PC.NURSE ---
On 09/04/22, the student, [Dave Ocampo], provided care and completed [facility] documentation on this patient. I have reviewed the student's documentation and agree with the findings.
== END 2022-09-04 14:07 | disposition home health service (06) | DRG 482 ==
LOC: ANHED 13:11 → ANH2MED 13:25
PROVIDERS: Orthopaedic Surgery; Admitting Provider Internal Medicine; Emergency Provider General Practice; PCP Physician Assistant; Visit Provider Nurse Practitioner
PROC: 0QH734Z Insertion of Internal Fixation Device into Left Upper Femur, Percutaneous Approach (ICD-10-PCS; principal; 2022-09-02 17:00)
DX: S72.012A Unspecified intracapsular fracture of left femur, initial encounter for closed fracture (principal); R03.0 Elevated blood-pressure reading, without diagnosis of hypertension; J44.9 Chronic obstructive pulmonary disease, unspecified; E78.5 Hyperlipidemia, unspecified; K21.9 Gastro-esophageal reflux disease without esophagitis; W01.0XXA Fall on same level from slipping, tripping and stumbling without subsequent striking against object, initial encounter; E04.1 Nontoxic single thyroid nodule; F17.210 Nicotine dependence, cigarettes, uncomplicated; Z86.19 Personal history of other infectious and parasitic diseases
CPT/HCPCS: 36415; 71045; 73502; 76705; 80053; 81001; 82140; 82550; 83735; 85025; 85610; 85730; 93005; 94640; 96374; 96375; 97110; 97116; 97161; 97165; 97530; 97535; 99199; 99285; A9270; J0690; J1170; J1200; J2250; J2270; J2405; J2550; J2704; J3010; J7030; J7120

== ENCOUNTER 2024-08-21 10:23 | Outpatient (CLI) | payer MEDICARE, MEDICAID, SELFPAY ==
--- NOTE | ~2024-08-21 | XR_ITS ---
XR shoulder LT min 2V Ordering provider: Tres Rivas, MARLIN History: . PAIN OF LEFT SHOULDER JOINT . Comparison: None. FINDINGS: BONES: No acute fracture or dislocation. JOINT SPACES: The acromioclavicular joint shows osteoarthritic changes.. The glenohumeral joint is no rmal. SOFT TISSUES: Normal. IMPRESSION: No acute osseous abnormality left shoulder. Reviewed, dictated and finalized at location A.
--- OUTSIDE RECORDS SUMMARY | 2024-08-21 12:11 | XMS_ITS | Encounter Summary ---
Author Organization [facility] Address [facility] [place] [address] Care Team Providers Care Property Insurance Claims Examiner Name Role Phone Roe Rishabhjake Trever ISAAC Primary Care Provider + Encounter Details Date Type Department Care Team (Late st Contact Info) Description 09/10/2020 Telephone [facility] [place] [address] [id number] Divine Juarez RN Social History Tobacco Use Types Packs/Day Years Used Date Smoking Tobacco: Every Day Cigarettes Smokeless Tobacco: Never Comments:ON CHANTIX Alcohol Use Standard Drinks/Week Comments No 0 (1 standard drink = 0.6 oz pur e alcohol) AUDIT-C Answer Date Recorded Frequency of Alcohol Consumption Never 03/07/2019 Average Number of Drinks Not on file 019 Frequency of Binge Drinking Not on file 02/13 Education Answer Date Recorded What is the highest level of school you have completed or the highest degree you have received? 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 Faxed MRI to Dr Gonzalez's office [phone]. documented in this encounter Plan of Treatment Not on file documented as of this encounter Visit Diagnoses Not on filedocumented in this encounter Care Teams Property Insurance Claims Examiner Relationship Specialty Start Date End Date Talha Au PA PCP - General PHYSICIAN CARGO TANK MECHANIC 02/24/19 documented as of this encounter
--- OUTSIDE RECORDS SUMMARY | 2024-08-21 12:11 | XMS_ITS | Clinical Summary ---
Author Organization [facility] Address [facility] [place] [address] Care Team Providers Care Cycle Specialist Name Role Phone Roe Talha ISAAC Primary Care Provider + Allergies No known active allergies Medications tiotropium 2.5 MCG/ACT inhaler (SPIRIVA RESPIMAT) Inhale 2 puffs into the lungs 2 (two) times a day. Please provide assembled. Active MYRBETRIQ 25 MG 24 hr tablet 08/14/2019 Active Active Problems Problem Noted Date Diagnosed Date Lumbar radiculopathy 03/07/2019 Family History Medical History Relation Comments Cancer Father Cancer Mother Relation Status Comments Father Mother Social History Tobacco Use Types Packs/Day Years Used Date Smoking Tobacco: Every Day Cigarettes Smokeless Tobacco: Never Tobacco Cessation:Counseling Given: Yes Comments:ON CHANTIX Alcohol Use Standard Drinks/Week Comments [...] ile Not on file Not on file Last Filed Vital Signs Vital Sign Reading Time Taken Comments Blood Pressure 157/100 06/28/2020 12:00 PM GYMNASTIC TEACHER Pulse 85 06/28/2020 11:48 AM GYMNASTIC TEACHER Temperature 36.4 C (97.5 F) 06/28/2020 11:09 AM GYMNASTIC TEACHER Respiratory Rate 18 06/28/2020 11:48 AM GYMNASTIC TEACHER Oxygen Saturation 98% 06/28/2020 11:48 AM GYMNASTIC TEACHER Inhaled Oxygen Concentration - - Weight 79.1 kg (174 lb 6.4 oz) 06/28/2020 11:09 AM GYMNASTIC TEACHER Height 165.1 cm (5' 5 ) 06/28/2020 11:09 AM GYMNASTIC TEACHER Body Mass Index 29.02 06/28/2020 11:09 AM GYMNASTIC TEACHER Plan of Treatment Health Maintenance Due Date Last Done Comments Colorectal Cancer Screening Colonoscopy (10 Years) 1957 Pneumococcal Vaccine: 65+ Years (1 of 2 - PCV) 10/26/1963 Hepatitis C 10/26/1975 DTaP, Tdap and Td Vaccines ( 1 - Tdap) 1976 Mammogram Screening 1997 Zoster Vaccines (1 of 2) 10/26/2007 Annual Medicare Wellness Visit 2022 Dexa Scan (General) 2022 COVID-19 Vaccine ( - 2023-2 5 season) 2024 Influenza Adult (#1) 2024 03/27/2016, 04/18/2014 RSV Immunization or 60+ Years (1 - 1-dose 75+ series) 2032 Meningococcal B Vaccine Aged Out No l onger eligible based on patient's age to complete this topic Meningococcal Vaccine Aged Out No sim rodrigue eligible based on patient's age to complete this topic RSV Immunizations Under 20 Months Aged Out No longer eligible b ased on patient's age to complete [place] [address] MEDICAID [facility] Care Teams Cycle Specialist Relationship Specialty Start Date End Date Talha Au PA PCP - General PHYSICIAN PEARLER 02/24/19
--- OUTSIDE RECORDS SUMMARY | 2024-08-21 12:11 | XMS_ITS | CONTINUITY OF CARE DOCUMENT ---
Author Name annamarie de luna Address Unknown Organization [facility] Address [address] [place] [address] Phone [phone] Care Team Providers Care Grocery Deliverer Name Role Phone Benjamin SANDY, Ankit Unavailable [phone] Rosalva RICHTER MD, MAGGIE Ariza Unavailable Tres Taylor Unavailable [phone] PROBLEMS Condition Status Date Provider Notes Elevated blood pressure read ing without diagnosis of hypertension active Ankit Alexander MD CHEST PAIN, nml stress test, echo EF 65% nml LVF 07/03 active Ankit Alexander MD DYSPNEA ON EXERTION active Ankit Alexander MD Edema - localized active Ankit Alexander MD Hepatitis C active Ankit Alexander MD Smoker, marijuana, tobacco active Anikt alegria MD COPD active Ankit Alexander MD Sleep apnea completed - Ankit Alexander MD Neck, tingling, discomfort active Ankit alegria MD ENCOUNTERS Date Type Provider Location Encounter Diag nosis - In-person encounter Office Visit Ankit Alexander MD [facility] Smoker, marijuana, tobaccoSleep apneaNeck, tingling, discomfort - In-person encounter Office Visit Ankit Alexander MD [facility] CHEST PAIN, nml stress test, echo EF 65% nml LVF 07/03 - In-person encounter Office Visit Ankit Alexander MD [facility] Elevated blood pressure reading without diagnosis of hypertensionCHEST PAIN, nml stress test, echo EF 65% nml LVF 07/03DYSPNEA ON EXERTIONEdema - localizedHepatitis CSmoker, marijuana, tobaccoCOPD VITAL SIGNS Date Observation Value Provider Body Mass Index (Ratio) 26.62 kg/m2 Munir Alexander MD blood pressure, cuff size regular Ke rri Mi blood pressure, diastolic 100 mm[Hg] [facility], systolic 150 mm[Hg] Melvina ri [facility] oxygen saturation, oximetry 96 % [facility] respiratory rate E&M 12 /min Sandie [facility] pulse rate 82 /min Sandie Belkise [facility] weight E&M 160 [lb_av] Sandie Gruenenfe er height E&M 65 [in_i] Sandie Gruenenfe er Body Mass Index (Ratio) 28.79 kg/m2 Munir Alexander MD blood pressure, diastolic 78 mm[Hg] To nsha Christopher blood pressure, systolic 119 mm[Hg] Ton [facility] oxygen saturation, oximetry 95 % Tonsha Christopher respiratory rate E&M 16 /min Tonsha Christopher pulse rate 82 /min Tonsha Christopher weight E&M 173 [lb_av] Tonsha Christopher height E&M 65 [in_i] Tonsha Christopher Body Mass Index (Ratio) 27.45 kg/m2 Munir Alexander MD respiratory rate E&M 16 /min Tonsha Christopher pulse rate 95 /min Tonsha Christopher height E&M 65 [in_i] Tonsha Christopher blood pressure, resting No Tons carter Christopher blood pressure, diastolic 98 mm[Hg] To nsha Christopher blood pressure, systolic 143 mm[Hg] Hiram [facility] oxygen saturation, oximetry 96 % [facility] weight E&M 165 [lb_av] [facility] ALLERGIES No Known Drug Allergies HISTORY OF MEDICATION USE Medication Status Instructions Dates Provider Indications Com orianas Tammy Ellipta 100-25 mcg/dose blister with device active Sandie Stark aspirin 81 mg tablet,delayed release (DR/EC) active TAKE ONE TABLET BY MOUTH EVERY DAY TO PREVENT BLOOD CLOTS Sandie Stark ergocalciferol (vitamin D2) 1,250 mcg (50,000 unit) capsule active TAKE ONE CAPSULE BY MOUTH EVERY WEEK WITH A MEAL Sandie Stark ezetimibe 10 mg tablet active TAKE 1 TABLET BY MOUTH EVERY DAY Sandie Stark SOCIAL HISTORY Date Observation Value Provider smoking/tobacco cess ation, patient education and counseling yes Rafael fadi smoking, date started 1975 Rafael Hood marianela smoking history, tot al pack/year 365 [facility], total pack/day 1 [facility] cigarette use yes [facility] smoking status Current every day smoker R [facility] social history E&M S moking History: P atient currently smokes every day. P atient has been counseled to quit. Ankit Alexander MD social history reviewed E&M revi ewed - no changes required Ankit Alexander MD smoking/tobacco cess ation, patient education and counseling yes [facility] smoking, date started 1975 [facility] smoking history, tot al pack/year 365 [facility] smoking history, total pack/day 1 [facility] cigarette use yes [facility] smoking status Current every day smoker [facility] social history E&M S moking History: P atient currently smokes every day. P atient has been counseled to quit. Ankit Alexander MD social history reviewed E&M revi ewed - no changes required Ankit Alexander MD number of grandchildren Ankit Alexander MD T danie Alexander MD smoking/tobacco cess ation, patient education and counseling yes Ankit Alexander MD smoking history, tot al pack/year 365 [facility] smoking history, total pack/day 1 [facility] smoking, date started 1976 [facility] cigarette use yes [facility] smoking status Current every day smoker [facility] FAMILY HISTORY Family Member Condition Full Sister Family History of De pression: Mother Family History of Di abetes: INSURANCE PROVIDERS Payer name Policy type / Coverage type [place] [employer] MEDICARE GOLD ADVANTAGE [facility] Medicare [id number] [facility] Medicaid 3 [id number] ADVANCE DIRECTIVES Name Date DISCUSSED - NO DECISION MADE TREATMENT PLAN Date Name Performer Cardiology: O rders: C omplete Echo (02651) S tress Exercise Cardiolite (CPT-25276) [facility] Cardiology: O rders: E KG (CPT-25319) C omplete Echo (87353) S tress Exercise Cardiolite (CPT-08693) [facility] Ankit Alexander MD Cardiology Ankit Alexander MD Cardiology Ankit Alexander MD Cardiology Ankit Alexander MD Cardiology Ankit Alexander MD Cardiology Ankit Alexander MD Cardiology Ankit Alexander MD Cardiology Ankit Alexander MD Cardiology Ankit Alexander MD Cardiology Ankit Alexander MD Cardiology Ankit Alexander MD Date Name Stress Exercise Card iolite Complete Echo Stress Exercise Card iolite Complete Echo HISTORY OF PROCEDURES Procedure Date Procedure Name Provider Procedure Notes S tatus Tobacco user + tobac co cessation intervention Ankit Alexander MD completed EKG Ankit Alexander MD completed Cardiolite, 2 units Ankit Alexander MD completed SPECT Images Ankit Alexander MD complet ed Stress EKG Ankit Alexander MD completed EKG Ankit Alexander MD completed
--- OUTSIDE RECORDS SUMMARY | 2024-08-21 12:11 | XMS_ITS | Encounter Summary ---
Author Organization [facility] Address [facility] [place] [address] Care Team Providers Care Smoking Pipe Coater Name Role Phone Talha Au Primary Care Provider + Reason for Referral * Surgical (Routine) - Closed Specialty Diagnoses / Procedures Referred By Tiffany canales Referred To Contact Diagnoses Lumbar radiculopathy Procedures Case request operating room: INJECTION EPIDURAL TRANSFORAMINAL L5-S1 Deirdre Silva APNP Phone: tel: fax: Referral ID Status Reason Start Date Expiration Date Visits Re quested Visits Authorized [id number] Closed 06/20/2019 07/21/2020 1 1 HER [facility]ER [facility]ER Encounter Details Date Type Department Care Team (Late st Contact Info) Description 06/20/2019 Prep for Procedure [facility] [place] [address] [id number] Deirdre Silva APNP [address] [place] [id number] Social History Tobacco Use Types Packs/Day Years [...] on file documented as of this encounter Plan of Treatment Scheduled Orders Name Type Priority Associated Diagnoses Orde r Schedule Case request operating room: INJECTION EPIDURAL TRANSFORAMINAL L5-S1 Case Request Routine Lumbar radiculopathy Once for 1 Occurrences starting 06/20/2019 until 06/20/2019 documented as of this encounter Visit Diagnoses Diagnosis Lumbar radiculopathy- Primary Thoracic or lumbosacral neuritis or radiculitis, unspecified documented in this encounter Care Teams Smoking Pipe Coater Relationship Specialty Start Date End Date Talha Au PA PCP - General PHYSICIAN SENIOR BUSINESS MANAGER 02/24/19 documented as of this encounter
== END 2024-08-21 10:24 | disposition home or self-care (01) ==
PROVIDERS: PCP Physician Assistant Medical; Visit Provider Physician Assistant Medical
DX: M25.512 Pain in left shoulder (principal)
CPT/HCPCS: 73030